=== PATIENT | female | born 1940 | race Caucasian/White ===

== ENCOUNTER 2019-06-01 09:41 | Outpatient (CLI) | payer MEDICARE, SELFPAY ==
--- NOTE | ~2019-06-01 | MR_ITS ---
EXAMINATION: MR brain/brain stem wo/w con DATE: 06/01/2019 11:54 INDICATION: Ataxia following unspecified cerebrovascular disease. TECHNIQUE: Magnetic resonance imaging (MRI) of the brain and brainstem was performed without and with 10 mL MultiHance intravenous contrast. Sequences included sagittal and axial T1-weighted FSE, axial diffusion-weighted FS EPI, axial T2*-weighted GRE, axial T2-weighted FLAIR Propeller, and axial T2-we ighted Propeller. Postcontrast sequences included axial and coronal T1-weighted FSE. Apparent diffusi on coefficient (ADC) maps were created. COMPARISON: Brain MRI 12/28/2015 FINDINGS: There are scattered areas of nonspecific increased T2-weighted signal intensity in the cere bral white matter and eddy. There is no intracranial hemorrhage, acute infarction, or abnormal intrac ranial mass lesion. The ventricles are normal in size. The orbits are normal. There is mild mucosal t hickening in the ethmoid sinuses. There is a small right mastoid effusion. IMPRESSION: 1. Worsened moderate nonspecific cerebral white matter disease and pontine disease, which likely repr esents chronic small vessel ischemic disease. Reviewed, dictated and finalized at location A. IMPRESSION: 1. Worsened moderate nonspecific cerebral white matter disease and pontine dise ase, which likely represents chronic small vessel ischemic disease.
[2019-06-01 10:56] LABS: Estimated Glomerular Filt Rate > 60
== END 2019-06-01 09:42 | disposition home or self-care (01) ==
PROVIDERS: Visit Provider Family Medicine
DX: I69.993 Ataxia following unspecified cerebrovascular disease (principal); R93.0 Abnormal findings on diagnostic imaging of skull and head, not elsewhere classified
CPT/HCPCS: 36415; 70553; A9577

== ENCOUNTER 2019-07-12 12:31 | Outpatient (CLI) | payer MEDICARE, SELFPAY ==
--- NOTE | ~2019-07-12 | XR_ITS ---
EXAMINATION: XR lumbar spine 2-3V DATE: 07/12/2019 13:06 INDICATION: Low back pain TECHNIQUE: Anteroposterior and lateral views of the lumbar spine, and cone-down lateral view of the l umbosacral junction were obtained. COMPARISON: 10/20/2008 FINDINGS: Bone alignment is normal. There is no fracture. The vertebral body heights are normal. Ther e is moderate loss of intervertebral disc space height at L5-S1. Small degenerative osteophytes proje ct from the anterior endplates of multiple vertebral bodies. 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 IMPRESSION: 1. Mild to moderate lumbar spondylosis without acute findings. Reviewed, dictated and finalized at location A.
== END 2019-07-12 12:32 | disposition home or self-care (01) ==
LOC: ANHIMG 12:33
PROVIDERS: Visit Provider Physician Assistant Medical
DX: M54.5 Low back pain (principal); M47.816 Spondylosis without myelopathy or radiculopathy, lumbar region
CPT/HCPCS: 72100

== ENCOUNTER 2022-11-28 07:41 | Outpatient (RCR) | payer OTHER, SELFPAY ==
[2022-11-12 13:54] VITALS: BMI 21.2
--- NOTE | 2022-12-26 13:01 | PCWOUND ---
WOCN NOTE Patient did not show up for appointment
== END 2023-01-27 08:27 | disposition home or self-care (01) ==
LOC: ANHWOC 07:41
PROVIDERS: PCP Family Medicine; Visit Provider Family Medicine
DX: L89.90 Pressure ulcer of unspecified site, unspecified stage (principal)
CPT/HCPCS: 99212; 99213; G0463

== ENCOUNTER 2022-12-25 15:32 | Outpatient (CLI) | payer OTHER, SELFPAY ==
--- NOTE | ~2022-12-25 | MR_ITS ---
MRI of the lumbar spine Clinical History: Unsteadiness Technique: Axial T2-weighted images, and sagittal T1-weighted, T2-weighted, and T2 fat-sat images wer e acquired. Findings: There is no fracture or subluxation of the lumbar spine. Vertebral bodies maintain normal h eight and alignment. No suspicious bone marrow signal abnormality seen. At L1-L2, there is mild disc bulge and mild facet arthropathy. No central canal stenosis or neural fo raminal narrowing. At L2-L3, there is disc bulge and moderate facet arthropathy. No central canal stenosis. There is mil d bilateral neural foraminal narrowing. At L3-L4, there is disc bulge and severe facet arthropathy. There is mild central canal stenosis. The re is severe right neural foraminal narrowing, and moderate to severe left neural foraminal narrowing . At L4-L5, there is diffuse disc bulge and severe facet arthropathy, severe spinal canal stenosis/thec al sac compression. There is severe bilateral neural foraminal narrowing, right worse than left. At L5-S1, there is diffuse disc bulge and severe facet arthropathy. No romana central canal stenosis. There is severe bilateral neural foraminal compromise. Paravertebral soft tissues are unremarkable. There is a probable partially imaged cystic mass in the pelvis/presacral region measuring up to 7 cm in diameter. Impression: Severe degenerative spondylosis of lumbar spine from L3-L4 through L5-S1, as detailed above. Partially imaged probable cystic mass in the right pelvis/presacral region measuring up to 7 cm in di ameter. Consider dedicated pelvic imaging to further evaluate this lesion. Reviewed, dictated and finalized at location . Impression: Severe degenerative spondylosis of lumbar spine from L3-L4 through L5-S1, as de tailed above. Partially imaged probable cystic mass in the right pelvis/presacral region neymar uring up to 7 cm in diameter. Consider dedicated pelvic imaging to further eval uate this lesion.
== END 2022-12-25 15:33 | disposition home or self-care (01) ==
PROVIDERS: PCP Family Medicine; Visit Provider Family Medicine
DX: R26.81 Unsteadiness on feet (principal); Z91.81 History of falling; M54.31 Sciatica, right side; M47.896 Other spondylosis, lumbar region; M47.897 Other spondylosis, lumbosacral region
CPT/HCPCS: 72148

== ENCOUNTER 2023-11-04 07:09 | Outpatient (CLI) | payer OTHER, SELFPAY ==
--- NOTE | ~2023-11-04 | NM_ITS ---
EXAMINATION: NM erlin stress w perfusion DATE: 11/04/2023 10:19 INDICATION: Other ventricular tachycardia TECHNIQUE: Rest images were obtained following intravenous administration of 11 mCi Tc99m tetrofosmin (Myoview). The patient refused to complete the stress portion of the examination and no further radi opharmaceuticals administered. Data was reconstructed into short axis and horizontal and vertical danelle g axis SPECT images. COMPARISON: None. FINDINGS: There is no definite perfusion abnormality on the rest images to suggest infarct. IMPRESSION: 1. Normal myocardial perfusion at rest. Patient refused the stress portion of the examination. Reviewed, dictated and finalized at location A. IMPRESSION: 1. Normal myocardial perfusion at rest. Patient refused the stress portion of t he examination.
--- NOTE | 2023-11-04 07:21 | ECHO_ITS ---
Patient Info Name: Bernadette Slater Age: 82 years : 1940 Gender: Female Ht: 60 in Wt: 120 lbs BSA: 1.53 m2 HR: 60 bpm BP: 160 / 99 mmHg Technical Quality: Fair Exam Date: 11/04/2023 7:35 AM Exam Location: Echo Lab Patient Status: Outpatient Admit Date: 11/04/2023 Staff Ordering Physician: Beck Correa DO Hair Baler: Citlalli Oreilly RDCS Attending Provider: Beck Correa DO Referring Physician: Sunny GIL; Exam Type: CA echo doppler color flow Study Info Indications - I47.29-other ventricular tachycardia Complete two-dimensional, color flow and Doppler transthoracic echocardiogram is performed. Summary 1. Complete two-dimensional, color flow and Doppler transthoracic echocardiogram is performed. 2. Left ventricular chamber dimension is normal. 3. Left ventricular systolic function is normal, estimated at 65-70%. 4. There is mild concentric increased left ventricular wall thickness. 5. The left ventricular diastolic function is grade I diastolic dysfunction. 6. E/e' 14 is mildly elevated. 7. Left atrial chamber dimension is mildly enlarged. 8. The aortic valve is not well visualized. Cannot determine number of aortic valve leaflets. 9. There is moderate aortic valve sclerosis. 10. There is moderate aortic valve stenosis based on a valve area of 1.2 cm2, mean gradient of 5 mmHg and peak velocity of 1.5 m/s. 11. There is trace mitral valve regurgitation. Left Ventricle E/e' 14 is mildly elevated. Left ventricular chamber dimension is normal. Left ventricular systolic function is normal, estimated at 65-70%. There is mild concentric increased left ventricular wall thickness. The left ventricular diastolic function is grade I diastolic dysfunction. Right Ventricle Right ventricular systolic function is normal and with normal TAPSE 1.8 cm. Right ventricular chamber dimension is normal. Left Atria Left atrial chamber dimension is mildly enlarged. Right Atria Right atrial chamber dimension is normal. Aortic Valve The aortic valve is not well visualized. Cannot determine number of aortic valve leaflets. There is moderate aortic valve stenosis based on a valve area of 1.2 cm2, mean gradient of 5 mmHg and peak velocity of 1.5 m/s. There is moderate aortic valve sclerosis. There is no aortic valve regurgitation. Pulmonic Valve There is no pulmonic regurgitation. Mitral Valve There is no mitral valve stenosis. There is trace mitral valve regurgitation. Tricuspid Valve There is no tricuspid valve regurgitation. Pericardium/Pleural There is no pericardial effusion. Inferior Vena Cava Normal inferior vena cava with >50% collapse upon inspiration consistent with normal right atrial pressure, 5 mmHg. Aorta The aortic root size at the sinus of Valsalva is normal. Left Ventricular Outflow Tract Name Value Normal LVOT 2D LVOT Diameter 2.0 cm LVOT Doppler LVOT Peak Gradient 1 mmHg LVOT Mean Gradient 1 mmHg LVOT VTI 10 cm LVOT VTI/AV VTI Ratio 0.2 LVOT Stroke Volume 32 ml LVOT CO 2.5 l/min LVOT CI
== END 2023-11-04 07:10 | disposition home or self-care (01) ==
LOC: ANHCARD 07:12
PROVIDERS: PCP Family Medicine; Visit Provider Internal Medicine Cardiovascular Disease
DX: I47.29 Other ventricular tachycardia (principal); I51.89 Other ill-defined heart diseases; I35.8 Other nonrheumatic aortic valve disorders; I35.0 Nonrheumatic aortic (valve) stenosis
CPT/HCPCS: 78452; 93306; A9502

== ENCOUNTER 2024-05-28 14:34 | Outpatient (CLI) | payer OTHER, SELFPAY ==
--- OUTSIDE RECORDS SUMMARY | 2024-05-28 14:43 | XMS_ITS | CONTINUITY OF CARE DOCUMENT ---
Author Name gildardo ewing Address Unknown Organization [facility] Address [address] [place] [address] Phone [phone] Care Team Providers Care Loss Control Engineer Name Role Phone Rishi Cruz MD Unavailable Rishi Cruz MD Unavailable [phone] INSURANCE PROVIDERS Payer name Policy type / Coverage type Julian red democrat ID [employer] Other [id number]
--- OUTSIDE RECORDS SUMMARY | 2024-05-28 14:43 | XMS_ITS | Continuity of Care Document ---
Author Organization [facility] Address [address] [place] [address] [place] [address] Phone Care Team Providers Care Clinical Account Liaison Name Role Phone Jak, Paulino Unavailable Unavailable Advance Directives Directive Yes / No Effective Date File Name No Information Encounters Encounter Description Practice Location Reason(s) For Visit Diagnoses Date Provider Providers Copied on Encounter [facility], [id number] [place] [address] [address], [place], [place], [id number], [place] tel:[phone] [facility] No Information Apr-2 0-200 5 Doisy Edward. [address] , [address], [place], [address], [place]. tel:[phone] Referring Provider: James Ovalle MD, [address] [place] [address], [address]. tel:[phone] Family History Family Member Type Diagnosis Age At Onset No Information Payers Payer name Insurance type Covered libertarian ID Authoriza tion(s) No Information Social History Type Description Quantity Date Captured Comments Sex Female Smoking Status No Information Chief Complaint And Reason For Visit No Information Reason For Referral Reason For Referral No Information History Of Present Illness Encounter Date Complaint History Of Prese nt Illness No Information Functional Status Date Functional Assessmen t No Information Instructions Date Instruction Additional Infor mation No Information Assessments Type Assessment Date No Information Patient Care Teams Name Effective Dates (start - stop) Status Members No Information
[2024-05-28 17:55] LABS: Alanine Aminotransferase 22 U/L (6-35); Albumin Level 4.6 g/dL (3.5-5.1); Alkaline Phosphatase 97 U/L (38-126); Anion Gap 12 mmol/L (4-12); Aspartate Amino Transferase 34 U/L (14-36); Bilirubin,Total 0.4 mg/dL (0.2-1.3); Blood Urea Nitrogen 12 mg/dL (7-17); Calcium 9.3 mg/dL (8.4-10.2); Carbon Dioxide 27 mmol/L (22-30); Chloride 100 mmol/L (98-107); Cholesterol 165 mg/dL (0-200); Estimated Glomerular Filt Rate > 60; Glucose 303 mg/dL (65-110); HDL Direct 60 mg/dL; Sodium 139 mmol/L (137-145); Triglycerides 129 mg/dL (<150)
[2024-05-28 17:59] LABS: Hemoglobin A1C 9.1 % (<5.7)
[2024-05-28 18:10] LABS: LDL Cholesterol Direct 75 mg/dL
== END 2024-05-28 14:35 | disposition home or self-care (01) ==
LOC: ANHGOSHLAB 14:35
PROVIDERS: PCP Family Medicine; Visit Provider Family Medicine
DX: E11.9 Type 2 diabetes mellitus without complications (principal)
CPT/HCPCS: 36415; 80053; 80061; 83036